=== PATIENT | female | born 1995 | race Caucasian/White ===

== ENCOUNTER 2020-08-13 23:49 | Emergency (ER) | payer BC ==
[~2020-08-13] VITALS: Ht 160 cm; Wt 53.4 kg
[2020-08-14 04:00] VITALS: BP 104/69
--- NOTE | 2020-08-14 05:46 | ECGEPIP ---
[facility] - ED Test Date: 2020-08-14 Pat Name: BENJAMIN JENSEN Department: Room: - Gender: Female Director Of Nuclear Medicine: DAVID : 1995 Requested By: VAL Nagel Order Number: [id number] Reading MD: Forest Soares Measurements Intervals [place] Rate: 55 P: 54 WI: 141 QRS: 63 QRSD: 84 T: 36 QT: 420 QTc: 403 Interpretive Statements SINUS BRADYCARDIA INCOMPLETE RIGHT BUNDLE BRANCH BLOCK NO PRIORS FOR COMPARISON Electronically Signed on 08-14-2020 5:46:33 EST by Forest Soares
== END 2020-08-14 04:20 | disposition home or self-care (01) ==
LOC: M ED 23:49
DX: R07.89 Other chest pain (principal); F43.0 Acute stress reaction; I45.10 Unspecified right bundle-branch block; R94.31 Abnormal electrocardiogram [ECG] [EKG]; F33.9 Major depressive disorder, recurrent, unspecified; Z79.899 Other long term (current) drug therapy; Z88.0 Allergy status to penicillin; Z88.8 Allergy status to other drugs, medicaments and biological substances

== ENCOUNTER → 2020-10-31 | Outpatient (REF) | payer SELFPAY | LOC: M LABSMTC 08:35 → EDSTATUS 11:25 | PROVIDERS: ATTEND Pediatrics | DX: Z20.822 Contact with and (suspected) exposure to COVID-19 (principal) ==